=== PATIENT | male | born 1940 | race Hispanic/Latino ===

== ENCOUNTER 2017-11-22 15:20 | Observation (INO) | payer MEDICARE, OTHER ==
[~2017-11-22] VITALS: Ht 165.1 cm; Wt 80.3 kg
[~2017-11-22 15:20] MED LIST: ACIDOPHILUS1 EAC4 PO; AZITHROMYCIN250 MG; BENZONATATE200 MG PO; CIPRO500 MG PO; LOVASTATIN20 MG PO; PREDNISONE10 MG PO; QUETIAPINE FUM100 MG PO; QUETIAPINE FUMA25 MG PO; TAMIFLU75 MG PO
--- OUTSIDE RECORDS SUMMARY | 2017-11-22 15:22 | XMS REPORT ---
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 Allergies, Adverse Reactions, Alerts This patient has no known allergies or adverse reactions. Medications This patient has no known medications. Results Test Description Test Time Test Comments Text Results Atomic Results Result Comments CHEST 2 VIEWS [place] [address] Patient Name: ELIANA MUSTAFA MR #: [id number] : 1940 Age/Sex: 76/M Req # : [id number] Adm Physician: Ordered by: KIM CORTEZ Report #: [id number] Location: ER Room/Bed: Procedure: [id number] DX/CHEST 2 VIEWS Exam Date: 08/18/17 Exam Time : 1929 REPORT STATUS: Signed Two view chest x-ray INDICATION: Abnormal CT, swollen legs COMPARISON: CT chest 08/18/2017, chest x-ray 05/01 FINDINGS: The heart is top normal in size. The aorta is ectatic. The lindsay is stable in morphology. The pulmonary vascular markings are normal. The lungs are hyperinflated. There is bibasilar chronic atelectasis/scar, similar to previous exam. There is no evidence of focal consolidation or pleural effusion. Evaluation of the osseous structures demonstrates diffuse demineralization and degenerative changes of the spine consistent with age. No focal osseous lesions. IMPRESSION: COPD. Stable bibasilar chronic atelectasis/scar. Stable cardiomegaly and aortic ectasia. No acute cardiopulmonary process. Signed by: Dr. Prerna Germain MD on 08/18/2017 8:05 PM Dictated By: PRERNA GERMAIN MD 04 Transcribed By : MUSTAPHA on 08/18/172004 COPY TO: KIM CORTEZ CT CHEST W [place] [address] Patient Name: ELIANA MUSTAFA MR #: [id number] : 1940 Age/Sex: 76/M Req # : [id number] Adm Physician: Ordered by: EVIE RODGERS MD Report #: [id number] Location: CT Room/Bed: Procedure: [id number] CT/CT CHEST W Exam Date: 08/18/17 Exam Time: 1640 REPORT STATUS: Signed PROCEDURE: CT scan of the chest WITH intravenous contrast, using standard protocol. TECHNIQUE: The chest was scanned utilizing a multidetector helical scanner from the lung apex through the level of the adrenal glands after the IV administration of 100 cc of Isovue 370. Coronal and sagittal multiplanar reformations were obtained. COMPARISON: Chest CT 07/21/2015. INDICATIONS: COUGH, CONGESTION FINDINGS: Lines/tubes: None. Lungs and Airways: Stable bilateral lower lobe subsegmental atelectasis and scarring, as well as left lower lobe atelectasis likely secondary to extrinsic narrowing of the left lower lobe subsegmental bronchus by calcified left hilar lymph nodes. No new opacities, masses, or consolidation. Segmental and subsegmental pulmonary emboli in the right and left lower lobes (series 2 image 83 and 64-68). Pleura: The pleural spaces are clear. Heart and mediastinum: Numerous calcified mediastinal and hilar lymph nodes. No significant mediastinal, hilar or axillary lymphadenopathy is seen. The thyroid gland is normal. The heart and pericardium are within normal limits. Mild atherosclerotic calcifications. Left vertebral artery arises directly from the aorta. Soft tissues: Normal. Abdomen: Subcentimeter hepatic cysts. Renal cysts noted within the visualized portions of the left kidney, characterized as simple cysts on MRI 11/11/2015. Bones: Degenerative changes of the spine. IMPRESSION: 1. Bilateral lower lobe segmental and subsegmental pulmonary emboli. No evidence of right heart strain. 2. Stable lower lobe scarring and posteromedial left lower lobe atelectasis likely secondary to extrinsic narrowing of the left lower lobe subsegmental bronchus by calcified hilar lymph nodes. 3. Calcified mediastinal and hilar lymph nodes likely related to prior granulomatous disease. Findings were discussed with the patient by Dr. Power via telephone with the assistance of a mate first on 08/18/2017 at 5:45 pm after unsuccessful attempts at contacting Dr. Rodgers's office. Patient was advised to go to the emergency room as soon as possible. Patient verbalized their understanding and agreed to go to the emergency room. Dictated by: Kyle Power M.D. on 08/18/2017 at 17:51 Electronically approved by: Kyle Power M.D. on 08/18/2017 at 17:51 Dictated By: KYLE POWER MD 50 Transcribed By: ELISEO on 08/18/17 175 COPY TO: EVIE RODGERS MD
[2017-11-22] MEDS ORDERED: AZITHROMYCIN 500MG/NS 250 ML 250 ML IV STA (15:57)
[2017-11-22] MEDS ORDERED: SODIUM CHLORIDE 0.9% 1000ML 1,000 ML IV STA (15:57)
[2017-11-22] MEDS ORDERED: CEFTRIAXONE SOD 1 GM VIAL IV SCH (16:00)
[2017-11-22] MEDS ORDERED: IPRATROPIUM BROMIDE 0.02% 2.5 ML NEB NEB STA (16:02)
[2017-11-22] MEDS ORDERED: ALBUTEROL SULF 0.083% NEB SOLN 3 ML NEB NEB STA (16:02)
--- NOTE | 2017-11-22 16:47 | Diagnostic Imaging Report ---
PROCEDURE: A single AP view of the chest. COMPARISON: Chest radiograph and CT 08/18/2017 INDICATIONS: CONGESTION, COUGH AND SHORTNESS OF BREATHE FINDINGS: Lines/tubes: None. Lungs: The lungs are well inflated. Linear opacities in the lung bases likely representing atelectasis and/or scarring. There is no evidence of pneumonia or pulmonary edema. Pleura: There is no pleural effusion or pneumothorax. Heart and mediastinum: Tortuous aorta. Otherwise, the heart and the mediastinum are unremarkable. Bones: No acute bony abnormality. IMPRESSION: No acute cardiopulmonary disease. Dictated by: Kyle Martinez M.D. on 11/22/2017 at 16:46 Electronically approved by: Kyle Martinez M.D. on 11/22/2017 at 16:46
[2017-11-22 18:17] LABS: BASOPHILS % 0.2 % (0.0-1.0); HEMATOCRIT 44.4 % (38.2-49.6); HEMOGLOBIN 14.4 g/dL (14.0-18.0); LYMPHOCYTES # (AUTO) 0.7 (1.0-3.2); LYMPHOCYTES % 4.6 % (18.0-39.1); MEAN CORPUSCULAR HEMOGLOBIN 28.2 pg (28-32); MEAN CORPUSCULAR HGB CONC 32.4 g/dL (31-35); MEAN CORPUSCULAR VOLUME 87.1 fL (81-99); MONOCYTES # (AUTO) 0.5 (0.2-0.8); MONOCYTES % 3.5 % (4.4-11.3); NEUTROPHILS # (AUTO) 13.4 (2.1-6.9); NEUTROPHILS % 91.2 % (38.7-80.0); PLATELET COUNT 222 x10e3/uL (140-360); RED CELL DISTRIBUTION WIDTH 14.9 % (11.7-14.4)
[2017-11-22 18:36] LABS: ALANINE AMINOTRANSFERASE 26 IU/L (0-55); ALBUMIN 3.7 g/dL (3.5-5.0); ALBUMIN/GLOBULIN RATIO 0.8 (0.8-2.0); ALKALINE PHOSPHATASE 57 IU/L (40-150); ANION GAP 15.1 mmol/L (8-16); BLOOD UREA NITROGEN 15 mg/dL (7-26); BUN/CREATININE RATIO 13 (6-25); CALCIUM 9.4 mg/dL (8.4-10.2); CARBON DIOXIDE 22 mmol/L (22-29); CHLORIDE 105 mmol/L (98-107); CREATININE, SERUM 1.12 mg/dL (0.72-1.25); EST GLOMERULAR FILTRATION RATE > 60 ML/MIN (60-); GLUCOSE 152 mg/dL (74-118); POTASSIUM 4.1 mmol/L (3.5-5.1); SODIUM 138 mmol/L (136-145)
[2017-11-22] MEDS ORDERED: AZITHROMYCIN 500MG/NS 250 ML 250 ML ONE (19:01)
[2017-11-22] MEDS ORDERED: SODIUM CHLORIDE 0.9% 1000ML 1,000 ML ONE (19:02)
[2017-11-22] MEDS ORDERED: AZITHROMYCIN 500MG/SOD CHL 0.9% 250ML BAG IV SCH (19:30)
[2017-11-22] MEDS: IPRATROPIUM BROMIDE 0.02% 2.5 ML NEB NEB SCH (19:30)
[2017-11-22] MEDS: ALBUTEROL SULF 0.083% NEB SOLN 3 ML NEB NEB SCH (19:30)
[2017-11-22] MEDS: SODIUM CHLORIDE 0.9% 1000ML 1,000 ML IV SCH (20:01)
[2017-11-22] MEDS: AZITHROMYCIN 500MG/NS 250 ML 250 ML IV SCH (20:01)
[2017-11-22 20:05] LABS: ABG HCO3 24 mmol/L (23-28); ABG PCO2 36 mmHg (41-51); ABG PH 7.43 (7.31-7.41); ABG PO2 146 mmHg (80-105)
[2017-11-22 22:33] VITALS: BP 145/65
[2017-11-22 22:43] VITALS: BP 135/76
[2017-11-22 22:46] VITALS: BP 135/76
[2017-11-23] VITALS (8 sets, daily range): BP systolic 94–126; BP diastolic 57–65
[2017-11-23] MEDS: ALBUTEROL SULF 0.083% NEB SOLN 3 ML NEB NEB SCH ×6 (00:15→19:20)
[2017-11-23] MEDS: IPRATROPIUM BROMIDE 0.02% 2.5 ML NEB NEB SCH ×4 (00:15→19:20)
[2017-11-23] MEDS: SODIUM CHLORIDE 0.9% 1000ML 1,000 ML IV SCH (03:18)
[2017-11-23] MEDS ORDERED: GUAIFENESIN/CODEINE 10 ML CUP PO PRN (09:30)
[2017-11-23] MEDS: METHYLPREDNISOLONE SOD SUCC 40 MG/ML VIAL IV SCH ×3 (09:58→22:24)
[2017-11-23] MEDS: CEFTRIAXONE SOD 1 GM VIAL IV SCH ×2 (09:58→21:06)
[2017-11-23] MEDS: BENZONATATE 100 MG CAP PO SCH ×3 (09:58→21:06)
--- NOTE | 2017-11-23 12:06 | Diagnostic Imaging Report ---
PROCEDURE: CT CHEST WITHOUT CONTRAST CT scan of the chest WITHOUT intravenous contrast, using standard protocol. TECHNIQUE: The chest was scanned utilizing a multidetector helical scanner from the apex to the level of the adrenal glands. No IV contrast was administered per physician's request. Coronal and sagittal multiplanar reformations were obtained. COMPARISON: [facility], CT, CT CHEST W, 08/18/2017, 16:32. INDICATIONS: SHORTNESS OF BREATH FINDINGS: Lines/tubes: None. Lungs and Airways: No interval change in scarring and associated bronchiectasis and mucus impaction, and volume loss of the left lower lobe (series 3, image 81) with posterior retraction of the major fissure, secondary to extrinsic compression of the left lower lobe bronchus by calcified hilar nodes. Interval development of nodular groundglass opacities extending along the bronchovascular bundle in the lateral aspect of the left upper lobe (for example series 3, images 72-81 and coronal image 77). Stable linear scarring and associated bronchiectasis in the right lower lobe and lingula. No new consolidation or nodules. No new masses. Pleura: No effusion, or pneumothorax. Heart and mediastinum: Thyroid is unremarkable. Heart size is normal. No pericardial effusion. Mild atherosclerotic calcification of the thoracic aortic arch and coronary arteries. Lymph nodes: Extensive calcification of mediastinal, and bilateral hilar nodes, which is unchanged. No new mediastinal, hilar, or axillary adenopathy. Abdomen: Limited views of the upper abdomen show no abnormality within the visualized spleen, pancreas, or right kidney. Stable 1.2 cm simple cyst in the superior pole left kidney (series 2, image 109). Stable subcentimeter hypodense lesions in the liver consistent with small cysts. The adrenal glands are normal. Bones: No aggressive lytic lesions. IMPRESSION: 1. interval development of nodular groundglass opacities extending along the bronchovascular bundle in the lateral aspect of the left upper lobe, likely representing endobronchial spread of infection. No consolidation. 2. No interval change in scarring, associated bronchiectasis and mucus impaction and volume loss in the left lower lobe, as well as linear scarring in the right lower lobe and lingula. Anthony Sanabria M.D. Dictated by: Anthony Sanabria M.D. on 11/23/2017 at 12:06 Electronically approved by: Anthony Sanabria M.D. on 11/23/2017 at 12:06
[2017-11-23] MEDS: ENOXAPARIN SOD INJ 40 MG/0.4 ML SYR SC SCH (17:13)
[2017-11-24] VITALS (8 sets, daily range): BP systolic 99–144; BP diastolic 56–84
[2017-11-24] MEDS: ALBUTEROL SULF 0.083% NEB SOLN 3 ML NEB NEB SCH ×6 (00:24→20:12)
[2017-11-24] MEDS: IPRATROPIUM BROMIDE 0.02% 2.5 ML NEB NEB SCH ×4 (00:24→20:12)
[2017-11-24] MEDS: METHYLPREDNISOLONE SOD SUCC 40 MG/ML VIAL IV SCH ×3 (06:18→22:36)
[2017-11-24 07:37] LABS: BASOPHILS % 0.1 % (0.0-1.0); HEMATOCRIT 35.6 % (38.2-49.6); HEMOGLOBIN 11.9 g/dL (14.0-18.0); LYMPHOCYTES # (AUTO) 0.9 (1.0-3.2); LYMPHOCYTES % 5.6 % (18.0-39.1); MEAN CORPUSCULAR HGB CONC 33.4 g/dL (31-35); MEAN CORPUSCULAR VOLUME 86.6 fL (81-99); MONOCYTES # (AUTO) 0.7 (0.2-0.8); MONOCYTES % 4.4 % (4.4-11.3); NEUTROPHILS # (AUTO) 14.1 (2.1-6.9); NEUTROPHILS % 88.3 % (38.7-80.0); PLATELET COUNT 214 x10e3/uL (140-360); RED BLOOD COUNT 4.11 x10e6/uL (4.3-5.7); RED CELL DISTRIBUTION WIDTH 15.3 % (11.7-14.4)
[2017-11-24 08:03] LABS: ANION GAP 11.5 mmol/L (8-16); BLOOD UREA NITROGEN 22 mg/dL (7-26); BUN/CREATININE RATIO 26 (6-25); CALCIUM 8.3 mg/dL (8.4-10.2); CARBON DIOXIDE 22 mmol/L (22-29); CHLORIDE 112 mmol/L (98-107); CREATININE, SERUM 0.85 mg/dL (0.72-1.25); EST GLOMERULAR FILTRATION RATE > 60 ML/MIN (60-); GLUCOSE 125 mg/dL (74-118); POTASSIUM 4.5 mmol/L (3.5-5.1); SODIUM 141 mmol/L (136-145)
[2017-11-24] MEDS: BENZONATATE 100 MG CAP PO SCH ×3 (09:00→20:35)
[2017-11-24] MEDS: CEFTRIAXONE SOD 1 GM VIAL IV SCH ×2 (09:27→20:35)
[2017-11-24] MEDS: ENOXAPARIN SOD INJ 40 MG/0.4 ML SYR SC SCH (17:00)
[2017-11-24] MEDS ORDERED: SODIUM CHLORIDE 0.9% 250ML 250 ML ONE (17:40)
[2017-11-24] MEDS: AZITHROMYCIN 500MG/NS 250 ML 250 ML IV SCH (18:00)
[2017-11-24] MEDS ORDERED: PANTOPRAZOLE SOD 40 MG TABEC PO ONE (20:15)
[2017-11-25] VITALS (7 sets, daily range): BP systolic 105–157; BP diastolic 68–89
[2017-11-25] MEDS: IPRATROPIUM BROMIDE 0.02% 2.5 ML NEB NEB SCH ×4 (00:10→18:45)
[2017-11-25] MEDS: ALBUTEROL SULF 0.083% NEB SOLN 3 ML NEB NEB SCH ×7 (00:10→22:20)
[2017-11-25] MEDS: METHYLPREDNISOLONE SOD SUCC 40 MG/ML VIAL IV SCH ×3 (06:01→21:03)
[2017-11-25 08:01] LABS: BASOPHILS % 0.1 % (0.0-1.0); HEMATOCRIT 36.6 % (38.2-49.6); HEMOGLOBIN 12.2 g/dL (14.0-18.0); LYMPHOCYTES # (AUTO) 1.1 (1.0-3.2); LYMPHOCYTES % 7.9 % (18.0-39.1); MEAN CORPUSCULAR HEMOGLOBIN 28.2 pg (28-32); MEAN CORPUSCULAR HGB CONC 33.3 g/dL (31-35); MEAN CORPUSCULAR VOLUME 84.7 fL (81-99); MONOCYTES # (AUTO) 0.6 (0.2-0.8); MONOCYTES % 3.9 % (4.4-11.3); NEUTROPHILS # (AUTO) 12.4 (2.1-6.9); NEUTROPHILS % 87.1 % (38.7-80.0); PLATELET COUNT 228 x10e3/uL (140-360); RED BLOOD COUNT 4.32 x10e6/uL (4.3-5.7); RED CELL DISTRIBUTION WIDTH 15.1 % (11.7-14.4)
[2017-11-25 08:42] LABS: ANION GAP 13.2 mmol/L (8-16); BLOOD UREA NITROGEN 22 mg/dL (7-26); BUN/CREATININE RATIO 25 (6-25); CALCIUM 8.3 mg/dL (8.4-10.2); CARBON DIOXIDE 22 mmol/L (22-29); CHLORIDE 111 mmol/L (98-107); CREATININE, SERUM 0.87 mg/dL (0.72-1.25); EST GLOMERULAR FILTRATION RATE > 60 ML/MIN (60-); GLUCOSE 126 mg/dL (74-118); POTASSIUM 4.2 mmol/L (3.5-5.1); SODIUM 142 mmol/L (136-145)
[2017-11-25] MEDS: PANTOPRAZOLE SOD 40 MG TABEC PO SCH (09:15)
[2017-11-25] MEDS: CEFTRIAXONE SOD 1 GM VIAL IV SCH ×2 (09:15→21:03)
[2017-11-25] MEDS: BENZONATATE 100 MG CAP PO SCH ×3 (09:15→21:03)
[2017-11-25] MEDS: ENOXAPARIN SOD INJ 40 MG/0.4 ML SYR SC SCH (17:00)
[2017-11-25] MEDS: AZITHROMYCIN 500MG/NS 250 ML 250 ML IV SCH (18:00)
[2017-11-26] VITALS (7 sets, daily range): BP systolic 109–139; BP diastolic 66–83
[2017-11-26] MEDS: ALBUTEROL SULF 0.083% NEB SOLN 3 ML NEB NEB SCH ×4 (02:05→15:49)
[2017-11-26] MEDS: IPRATROPIUM BROMIDE 0.02% 2.5 ML NEB NEB SCH ×3 (02:05→15:49)
[2017-11-26] MEDS: METHYLPREDNISOLONE SOD SUCC 40 MG/ML VIAL IV SCH (05:32)
[2017-11-26 07:56] LABS: BASOPHILS % 0.3 % (0.0-1.0); HEMATOCRIT 36.2 % (38.2-49.6); HEMOGLOBIN 12.3 g/dL (14.0-18.0); LYMPHOCYTES # (AUTO) 0.9 (1.0-3.2); LYMPHOCYTES % 7.4 % (18.0-39.1); MEAN CORPUSCULAR HEMOGLOBIN 28.6 pg (28-32); MEAN CORPUSCULAR VOLUME 84.2 fL (81-99); MONOCYTES # (AUTO) 0.6 (0.2-0.8); MONOCYTES % 4.6 % (4.4-11.3); NEUTROPHILS # (AUTO) 10.2 (2.1-6.9); PLATELET COUNT 213 x10e3/uL (140-360); RED CELL DISTRIBUTION WIDTH 15.3 % (11.7-14.4)
[2017-11-26 08:25] LABS: ANION GAP 10.1 mmol/L (8-16); BLOOD UREA NITROGEN 21 mg/dL (7-26); BUN/CREATININE RATIO 26 (6-25); CALCIUM 8.1 mg/dL (8.4-10.2); CARBON DIOXIDE 23 mmol/L (22-29); CHLORIDE 109 mmol/L (98-107); CREATININE, SERUM 0.82 mg/dL (0.72-1.25); EST GLOMERULAR FILTRATION RATE > 60 ML/MIN (60-); GLUCOSE 132 mg/dL (74-118); POTASSIUM 4.1 mmol/L (3.5-5.1); SODIUM 138 mmol/L (136-145)
[2017-11-26] MEDS: PANTOPRAZOLE SOD 40 MG TABEC PO SCH (09:00)
[2017-11-26] MEDS: BENZONATATE 100 MG CAP PO SCH ×3 (09:00→20:47)
[2017-11-26] MEDS: CEFTRIAXONE SOD 1 GM VIAL IV SCH ×2 (09:08→20:47)
[2017-11-26 12:14] LABS: BAND NEUTROPHILS % (MANUAL) 1 %; LYMPHOCYTES % (MANUAL) 10 % (19-48); MONOCYTES % (MANUAL) 1 % (3.4-9.0); NEUTROPHILS % (MANUAL) 88 % (40-74)
[2017-11-26 12:17] LABS: PLATELET ESTIMATE ADEQUATE; PLATELET MORPHOLOGY COMMENT NORMAL; RBC MORPHOLOGY COMMENT NORMAL
[2017-11-26] MEDS: ENOXAPARIN SOD INJ 40 MG/0.4 ML SYR SC SCH (17:00)
[2017-11-26] MEDS ORDERED: LORATADINE 10 MG TAB PO SCH (18:30)
[2017-11-26] MEDS ORDERED: ALBUTEROL/IPRATROPIUM 3 ML NEB NEB PRN (18:30)
[2017-11-26] MEDS ORDERED: MONTELUKAST SODIUM 10 MG TAB PO SCH (21:00)
[2017-11-27 01:05] VITALS: BP 138/92
[2017-11-27 04:52] VITALS: BP 115/75
[2017-11-27 07:11] LABS: BASOPHILS # (AUTO) 0.1 (0.0-0.1); BASOPHILS % 0.5 % (0.0-1.0); HEMATOCRIT 36.8 % (38.2-49.6); HEMOGLOBIN 12.4 g/dL (14.0-18.0); LYMPHOCYTES # (AUTO) 1.1 (1.0-3.2); LYMPHOCYTES % 8.4 % (18.0-39.1); MEAN CORPUSCULAR HEMOGLOBIN 28.3 pg (28-32); MEAN CORPUSCULAR HGB CONC 33.7 g/dL (31-35); MONOCYTES # (AUTO) 1.3 (0.2-0.8); MONOCYTES % 9.4 % (4.4-11.3); NEUTROPHILS # (AUTO) 10.6 (2.1-6.9); NEUTROPHILS % 78.2 % (38.7-80.0); PLATELET COUNT 215 x10e3/uL (140-360); RED BLOOD COUNT 4.38 x10e6/uL (4.3-5.7); RED CELL DISTRIBUTION WIDTH 15.2 % (11.7-14.4)
[2017-11-27 08:08] LABS: ANION GAP 12.5 mmol/L (8-16); BLOOD UREA NITROGEN 19 mg/dL (7-26); BUN/CREATININE RATIO 23 (6-25); CALCIUM 8.2 mg/dL (8.4-10.2); CARBON DIOXIDE 23 mmol/L (22-29); CHLORIDE 109 mmol/L (98-107); CREATININE, SERUM 0.81 mg/dL (0.72-1.25); EST GLOMERULAR FILTRATION RATE > 60 ML/MIN (60-); GLUCOSE 92 mg/dL (74-118); POTASSIUM 4.5 mmol/L (3.5-5.1); SODIUM 140 mmol/L (136-145)
[2017-11-27 08:22] VITALS: BP 129/85
[2017-11-27] MEDS ORDERED: PREDNISONE 20 MG TAB PO SCH (09:00)
[2017-11-27] MEDS: BENZONATATE 100 MG CAP PO SCH (09:12)
[2017-11-27] MEDS: PANTOPRAZOLE SOD 40 MG TABEC PO SCH (09:12)
[2017-11-27 09:38] LABS: EOSINOPHILS % (MANUAL) 2 % (0-7); LYMPHOCYTES % (MANUAL) 9 % (19-48); METAMYELOCYTES % (MANUAL) 1 % (0-0); MONOCYTES % (MANUAL) 6 % (3.4-9.0); NEUTROPHILS % (MANUAL) 82 % (40-74)
[2017-11-27 09:39] LABS: PLATELET ESTIMATE ADEQUATE; PLATELET MORPHOLOGY COMMENT NORMAL; POIKILOCYTOSIS SLIGHT; RBC MORPHOLOGY COMMENT NORMAL
[2017-11-27] MEDS: CEFTRIAXONE SOD 1 GM VIAL IV SCH (09:51)
== END 2017-11-27 10:37 | disposition home or self-care (01) ==
LOC: ER 15:20 → EDBEDREQ 19:32 → ERHOLD 20:00 → IMCU 21:57 → MED/SURG3 11-23 22:37
PROVIDERS: ADMIT Internal Medicine; ATTEND Internal Medicine
DX: J18.9 Pneumonia, unspecified organism (principal); R09.02 Hypoxemia; J20.9 Acute bronchitis, unspecified
CPT/HCPCS: 36415 ×5; 36600; 71045; 71250; 80048 ×4; 80053; 82805; 83880; 85025 ×5; 87040; 87400; 93005; 94640 ×9; 99284; G0378 ×6; J0456 ×4; J0696 ×5; J1650 ×4; J2920 ×4; J7030 ×2; J7050

== ENCOUNTER 2017-12-11 10:03 | Inpatient (IN) | payer OTHER ==
[~2017-12-11] VITALS: Ht 165.1 cm; Wt 80.9 kg
[2017-12-11] MEDS ORDERED: ALBUTEROL SULF 0.083% NEB SOLN 3 ML NEB NEB STA (10:41)
[2017-12-11] MEDS ORDERED: IPRATROPIUM BROMIDE 0.02% 2.5 ML NEB NEB STA (10:41)
[2017-12-11] MEDS ORDERED: CEFTRIAXONE SOD 1 GM VIAL IV ONE (10:45)
[2017-12-11] MEDS ORDERED: ACETAMINOPHEN 1000 MG/100 ML IV STA (11:03)
[2017-12-11 11:11] LABS: BASOPHILS % 0.2 % (0.0-1.0); EOSINOPHILS % 0.1 % (0.0-6.0); HEMATOCRIT 39.6 % (38.2-49.6); HEMOGLOBIN 13.4 g/dL (14.0-18.0); LYMPHOCYTES # (AUTO) 0.4 (1.0-3.2); LYMPHOCYTES % 2.6 % (18.0-39.1); MEAN CORPUSCULAR HEMOGLOBIN 28.5 pg (28-32); MEAN CORPUSCULAR HGB CONC 33.8 g/dL (31-35); MEAN CORPUSCULAR VOLUME 84.3 fL (81-99); MONOCYTES # (AUTO) 1.1 (0.2-0.8); MONOCYTES % 6.8 % (4.4-11.3); NEUTROPHILS # (AUTO) 14.9 (2.1-6.9); NEUTROPHILS % 89.6 % (38.7-80.0); PLATELET COUNT 145 x10e3/uL (140-360); RED CELL DISTRIBUTION WIDTH 15.9 % (11.7-14.4)
[2017-12-11 11:29] LABS: ALANINE AMINOTRANSFERASE 27 IU/L (0-55); ALBUMIN 3.3 g/dL (3.5-5.0); ALBUMIN/GLOBULIN RATIO 0.9 (0.8-2.0); ALKALINE PHOSPHATASE 50 IU/L (40-150); ANION GAP 12.7 mmol/L (8-16); BLOOD UREA NITROGEN 15 mg/dL (7-26); BUN/CREATININE RATIO 15 (6-25); CALCIUM 8.8 mg/dL (8.4-10.2); CARBON DIOXIDE 22 mmol/L (22-29); CHLORIDE 99 mmol/L (98-107); CREATINE KINASE 58 IU/L (30-200); CREATININE, SERUM 1.02 mg/dL (0.72-1.25); EST GLOMERULAR FILTRATION RATE > 60 ML/MIN (60-); GLUCOSE 108 mg/dL (74-118); MAGNESIUM 1.7 MG/DL (1.3-2.1); POTASSIUM 3.7 mmol/L (3.5-5.1); SODIUM 130 mmol/L (136-145)
--- NOTE | 2017-12-11 12:00 | Diagnostic Imaging Report ---
PROCEDURE: Frontal and lateral views of the chest. COMPARISON: 11/22/17 INDICATIONS: POSITIVE FOR FLU FINDINGS: Lines/tubes: None. Lungs: The lungs are well inflated. Unchanged right lower lung field linear opacity, likely atelectasis/scaring. There is also left base linear atelectasis. Mild retrocardiac opacification. Pleura: There is no pleural effusion or pneumothorax. Heart and mediastinum: The heart and the mediastinum are normal. Bones: No acute bony abnormality. IMPRESSION: Retrocardiac opacification, representing atelectasis and/or pneumonia. Dictated by: Sudheer Toussaint M.D. on 12/11/2017 at 12:00 Electronically approved by: Sudheer Toussaint M.D. on 12/11/2017 at 12:00
[2017-12-11] MEDS ORDERED: AZITHROMYCIN 500MG/SOD CHL 0.9% 250ML BAG IV SCH (12:30)
[2017-12-11] MEDS: ALBUTEROL/IPRATROPIUM 3 ML NEB NEB SCH ×2 (13:00→19:45)
[2017-12-11] MEDS: CEFTRIAXONE SOD 1 GM VIAL IV SCH (13:18)
[2017-12-11] MEDS: AZITHROMYCIN 500MG/NS 250 ML 250 ML IV SCH (13:48)
[2017-12-11] MEDS: OSELTAMIVIR PHOSPHATE 75 MG CAP PO SCH ×2 (13:53→20:38)
[2017-12-11 14:20] LABS: LYMPHOCYTES % (MANUAL) 2 % (19-48); MONOCYTES % (MANUAL) 5 % (3.4-9.0); NEUTROPHILS % (MANUAL) 93 % (40-74)
[2017-12-11 14:22] LABS: ANISOCYTOSIS SLIGHT; HYPOCHROMASIA SLIG; RBC MORPHOLOGY COMMENT NORMAL
[2017-12-11 14:23] LABS: PLATELET ESTIMATE SLIGHTLY DECREASED
[2017-12-11 14:24] LABS: PLATELET MORPHOLOGY COMMENT NORMAL
[2017-12-11] MEDS ORDERED: DEXTROSE 50% SYRINGE 50 ML IV ONE (15:55)
[2017-12-11] MEDS: GUAIFENESIN 600MG/DEXTROMETHORPHAN 30MG TABSR PO SCH ×2 (17:00→20:38)
[2017-12-11 18:24] VITALS: BP 107/53
[2017-12-11 19:15] VITALS: BP 95/64
[2017-12-11] MEDS ORDERED: LORATADINE10 MG PO (19:32)
[2017-12-11] MEDS ORDERED: MONTELUKAST SOD10 MG PO (19:32)
[2017-12-11 19:46] VITALS: BP 95/64
[2017-12-11 20:00] VITALS: BP 95/64
[2017-12-11] MEDS ORDERED: INFLUENZA VIRUS VAC SPLIT INJ 0.5 ML SYR IM PRN (20:00)
[2017-12-11] MEDS ORDERED: PNEUMOCOCCAL VACCINE POLYVALENT 23 MCG/0.5 ML VIAL IM PRN (20:00)
[2017-12-11] MEDS: GUAIFENESIN/CODEINE 10 ML CUP PO PRN (20:38)
[2017-12-11] MEDS: SIMVASTATIN 20 MG TAB PO SCH (20:38)
[2017-12-11] MEDS: DOCUSATE SODIUM 100 MG CAP PO SCH (20:38)
[2017-12-11] MEDS: QUETIAPINE FUMARATE 100 MG TAB PO SCH (20:38)
[2017-12-11] MEDS ORDERED: NON-FORMULARY MEDICATION (Lovastatin 20 MG) PO SCH (21:00)
[2017-12-12] VITALS: BP 102/62
[2017-12-12] MEDS: ALBUTEROL/IPRATROPIUM 3 ML NEB NEB SCH ×4 (01:15→19:22)
[2017-12-12] MEDS: GUAIFENESIN/CODEINE 10 ML CUP PO PRN ×3 (02:47→22:07)
[2017-12-12 04:00] VITALS: BP 117/61
[2017-12-12] MEDS: ACETAMINOPHEN 325 MG TAB PO PRN ×2 (04:14→15:29)
[2017-12-12 06:06] LABS: BASOPHILS % 0.2 % (0.0-1.0); EOSINOPHILS # (AUTO) 0.1 (0.0-0.4); EOSINOPHILS % 0.4 % (0.0-6.0); HEMATOCRIT 34.3 % (38.2-49.6); HEMOGLOBIN 11.5 g/dL (14.0-18.0); LYMPHOCYTES # (AUTO) 0.3 (1.0-3.2); LYMPHOCYTES % 2.7 % (18.0-39.1); MEAN CORPUSCULAR HEMOGLOBIN 28.3 pg (28-32); MEAN CORPUSCULAR HGB CONC 33.5 g/dL (31-35); MEAN CORPUSCULAR VOLUME 84.3 fL (81-99); MONOCYTES # (AUTO) 0.7 (0.2-0.8); MONOCYTES % 6.5 % (4.4-11.3); NEUTROPHILS % 89.7 % (38.7-80.0); PLATELET COUNT 132 x10e3/uL (140-360); RED BLOOD COUNT 4.07 x10e6/uL (4.3-5.7)
[2017-12-12 06:31] LABS: ANION GAP 12.2 mmol/L (8-16); BLOOD UREA NITROGEN 16 mg/dL (7-26); BUN/CREATININE RATIO 18 (6-25); CALCIUM 8.3 mg/dL (8.4-10.2); CARBON DIOXIDE 23 mmol/L (22-29); CHLORIDE 107 mmol/L (98-107); CREATININE, SERUM 0.88 mg/dL (0.72-1.25); EST GLOMERULAR FILTRATION RATE > 60 ML/MIN (60-); GLUCOSE 115 mg/dL (74-118); POTASSIUM 4.2 mmol/L (3.5-5.1); SODIUM 138 mmol/L (136-145)
[2017-12-12 08:00] VITALS: BP 109/61
[2017-12-12 08:27] LABS: ANISOCYTOSIS SLIGHT; EOSINOPHILS % (MANUAL) 1 % (0-7); LYMPHOCYTES % (MANUAL) 2 % (19-48); MONOCYTES % (MANUAL) 5 % (3.4-9.0); NEUTROPHILS % (MANUAL) 90 % (40-74); PLATELET ESTIMATE SLIGHTLY DECREASED; PLATELET MORPHOLOGY COMMENT NORMAL; RBC MORPHOLOGY COMMENT NORMAL
[2017-12-12] MEDS: DOCUSATE SODIUM 100 MG CAP PO SCH ×2 (08:46→17:00)
[2017-12-12] MEDS: MONTELUKAST SODIUM 10 MG TAB PO SCH (08:46)
[2017-12-12] MEDS: LORATADINE 10 MG TAB PO SCH (08:46)
[2017-12-12] MEDS: OSELTAMIVIR PHOSPHATE 75 MG CAP PO SCH ×2 (08:46→17:00)
[2017-12-12] MEDS: GUAIFENESIN 600MG/DEXTROMETHORPHAN 30MG TABSR PO SCH ×2 (08:46→17:00)
[2017-12-12] MEDS: CEFTRIAXONE SOD 1 GM VIAL IV SCH (12:30)
[2017-12-12 12:32] VITALS: BP 113/76
[2017-12-12] MEDS: AZITHROMYCIN 500MG/NS 250 ML 250 ML IV SCH (13:00)
[2017-12-12 17:21] VITALS: BP 123/75
--- NOTE | 2017-12-12 19:31 | History and Physical ---
PRIMARY CARE PROVIDER: Dr. Gerardo Layne. CHIEF COMPLAINT: Pneumonia, influenza B. HISTORY OF PRESENT ILLNESS: Patient is a 77-year-old male who came in with acute shortness breath. Lungs sounds coarseness with wheezing. The patient has influenza B. Chest X-ray showed possible infiltrate, basilar. The patient is having coarseness on breathing and wheezing but improved now. The patient is otherwise stable. PAST MEDICAL HISTORY: Allergic rhinitis. History of recurrent lung disease. Insomnia. Hyperlipidemia. HOME MEDICATIONS: Claritin, lovastatin, Singular and Seroquel. ALLERGIES: NO KNOWN DRUG ALLERGIES. PAST SURGICAL HISTORY: Right carpal tunnel surgery. SOCIAL HISTORY: Patient does not smoke or use alcohol. No recreational drugs. REVIEW OF SYSTEMS: As mentioned, cough, shortness of breath, wheezing, fever. PHYSICAL EXAMINATION: GENERAL: The patient is not in acute distress. He is awake. VITAL SIGNS: Temperature 101. Blood pressure 123/75, Pulse rate 91. Respirations 22. HEENT: Normocephalic, atraumatic, anicteric. NECK: Supple grossly. PULMONARY: Bilateral coarseness and rhonchi both upper and lower lung [place]. CARDIOVASCULAR: S1 and S2. Regular rate and rhythm. ABDOMEN: Soft and unremarkable. EXTREMITIES: No cyanosis or edema. NEUROLOGIC: No gross focal deficit. LABORATORY: WBC is 11.3. Hemoglobin is 11.5. Hematocrit 34.3, platelets 132,000. Sodium 138, potassium 4.2, chloride 107, bicarb 23, BUN 16, creatinine 0.8. Glucose 150. IMPRESSION: 1. Community-acquired pneumonia. 2. Influenza B. 3. Hypoxia. 4. Abnormal lung exam. PLAN: Antibiotics. Tamiflu. Nebulizer treatment. Check the patient's lab work. Oxygen support. Will monitor patient closely and adjust his medication. Job#: [id number]
[2017-12-12 21:06] VITALS: BP 130/69
[2017-12-12] MEDS: QUETIAPINE FUMARATE 100 MG TAB PO SCH (22:07)
[2017-12-12] MEDS: SIMVASTATIN 20 MG TAB PO SCH (22:07)
--- NOTE | 2017-12-12 23:38 | Diagnostic Imaging Report ---
EXAM: CT Chest WITHOUT contrast 12/12/2017 6:28 PM INDICATION: Abnormal chest x-ray COMPARISON: 12/11/2017 TECHNIQUE: Chest was scanned utilizing a multidetector helical scanner from the lung apex through the level of the adrenal glands without administration of IV contrast. Absence of intravenous contrast decreases sensitivity for detection of lymphadenopathy and vascular pathology. Coronal and sagittal reformations were obtained. Routine protocol was performed. IV CONTRAST: None RADIATION DOSE: Total DLP: 532.33 mGy*cm Estimated effective dose: (DLP x 0.014 x size factor) mSv COMPLICATIONS: None FINDINGS: LINES/ TUBES: None. LUNGS AND AIRWAYS: Evidence of atelectasis and confluent airspace disease involving the superior segment of the left lower lobe and to a lesser extent right lower lobe suspicious for multifocal infection. The airways appear circumferentially thickened associated with peribronchial calcified lymph nodes. PLEURA: The pleural spaces are clear. HEART AND MEDIASTINUM: The thyroid gland is normal. Multiple calcified lymph nodes present in the mediastinum predominantly in the subcarinal, bilateral perihilar region, right lower paratracheal and prevascular space. The heart is normal in size.. There is no pericardial effusion. There are mild atherosclerotic calcifications in the aorta and coronary arteries. UPPER ABDOMEN: Partially visualized left renal collecting system appears distended BONES: There are degenerative changes in the thoracic spine. SOFT TISSUES: Unremarkable. IMPRESSION: 1. Constellation of findings are compatible with early stages of interstitial lung disease with calcified mediastinal lymph nodes suggestive of pneumoconiosis/silicosis. Differential diagnosis may include pulmonary sarcoidosis. 2. Left lower lobe evolving pneumonia. Signed by: Dr. Anoop Machado M.D. on 12/12/2017 11:34 PM
[2017-12-13] VITALS (7 sets, daily range): BP systolic 102–122; BP diastolic 55–79
[2017-12-13] MEDS: ALBUTEROL/IPRATROPIUM 3 ML NEB NEB SCH ×4 (02:00→20:15)
[2017-12-13 06:09] LABS: BASOPHILS % 0.2 % (0.0-1.0); EOSINOPHILS # (AUTO) 0.3 (0.0-0.4); HEMATOCRIT 32.2 % (38.2-49.6); HEMOGLOBIN 10.5 g/dL (14.0-18.0); LYMPHOCYTES # (AUTO) 0.7 (1.0-3.2); LYMPHOCYTES % 13.7 % (18.0-39.1); MEAN CORPUSCULAR HEMOGLOBIN 28.4 pg (28-32); MEAN CORPUSCULAR HGB CONC 32.6 g/dL (31-35); MONOCYTES # (AUTO) 0.7 (0.2-0.8); MONOCYTES % 14.7 % (4.4-11.3); NEUTROPHILS # (AUTO) 3.3 (2.1-6.9); NEUTROPHILS % 65.8 % (38.7-80.0); PLATELET COUNT 135 x10e3/uL (140-360); RED CELL DISTRIBUTION WIDTH 16.1 % (11.7-14.4)
[2017-12-13 06:34] LABS: BLOOD UREA NITROGEN 12 mg/dL (7-26); BUN/CREATININE RATIO 15 (6-25); CALCIUM 8.1 mg/dL (8.4-10.2); CARBON DIOXIDE 26 mmol/L (22-29); CHLORIDE 106 mmol/L (98-107); CREATININE, SERUM 0.82 mg/dL (0.72-1.25); EST GLOMERULAR FILTRATION RATE > 60 ML/MIN (60-); GLUCOSE 98 mg/dL (74-118); SODIUM 138 mmol/L (136-145)
[2017-12-13] MEDS: OSELTAMIVIR PHOSPHATE 75 MG CAP PO SCH ×2 (08:50→16:29)
[2017-12-13] MEDS: DOCUSATE SODIUM 100 MG CAP PO SCH ×2 (08:50→16:29)
[2017-12-13] MEDS: LORATADINE 10 MG TAB PO SCH (08:50)
[2017-12-13] MEDS: GUAIFENESIN 600MG/DEXTROMETHORPHAN 30MG TABSR PO SCH ×2 (08:50→16:29)
[2017-12-13] MEDS: MONTELUKAST SODIUM 10 MG TAB PO SCH (08:50)
[2017-12-13] MEDS ORDERED: ALBUTEROL/IPRATROPIUM 3 ML NEB NEB PRN (09:45)
[2017-12-13] MEDS: METHYLPREDNISOLONE SOD SUCC 125 MG/2ML VIAL IV SCH ×3 (11:04→21:55)
[2017-12-13] MEDS: PIPER-TAZ 3.375 GM 50 ML IV SCH ×4 (11:04→23:30)
[2017-12-13] MEDS: AZITHROMYCIN 500MG/NS 250 ML 250 ML IV SCH ×2 (13:00→22:00)
--- NOTE | 2017-12-13 14:45 | Consultation ---
DATE OF CONSULTATION: December 13, 2017 PULMONARY/CRITICAL CARE CONSULTATION REFERRING PHYSICIAN: Dr. Tobin Whitfield. CHIEF COMPLAINT: Worsening dyspnea and wheezing. HISTORY OF PRESENT ILLNESS: The patient is a 77-year-old man. He has a history of prior granulomatous disease and mediastinal adenopathy. In 2013, he required an endobronchial ultrasound and needle biopsy of some calcified lymph nodes. He was found to have a broncholith at that time secondary to old granulomatous disease. He did not have any malignancy. The patient also had pulmonary emboli in August 2017. This episode of pulmonary emboli occurred after a period of immobilization. He was treated with anticoagulants and subsequently stopped the medications. Repeat CT scan showed no further pulmonary emboli. He now complains of worsening dyspnea and congestion for the past week. He notes a cough and wheezing. He does not complain of fevers or chest pain. He came to the emergency department. He had a flu swab that was positive for influenza. He was started on antibiotics and Tamiflu with little improvement but did receive some Solu-Medrol this morning along with bronchodilators. PAST MEDICAL HISTORY 1. Broncholith. 2. Old granulomatous disease of the lung of unclear etiology. 3. COPD. 4. Insomnia. PAST SURGICAL HISTORY 1. Status post bronchoscopy with endobronchial ultrasound and biopsy in 2013 at [facility]. 2. Status post right carpal tunnel surgery. FAMILY HISTORY: Noncontributory. SOCIAL HISTORY: The patient has never been a smoker. He has never been a drinker. He may have had exposure to tuberculosis as a child, although he is unsure of this. He had some prior industrial exposures. REVIEW OF SYSTEMS: The patient is afebrile. He has no headache or chest pain. He does not complain of sore throat. He has no swollen glands. He has wheezing and cough. He notes dyspnea. He is not having any nausea or vomiting. He does not report any leg edema. He does note some insomnia. PHYSICAL EXAMINATION VITAL SIGNS: The patient is afebrile. HEENT: No facial swelling or erythema. The oropharynx is normal. LYMPHATIC: No submandibular, cervical or supraclavicular adenopathy. CARDIAC: Regular rate and rhythm with normal S1 and S2. There are no murmurs or rubs. LUNGS: Auscultation of the lungs reveals wheezes bilaterally. There is a prolonged expiratory phase bilaterally. ABDOMEN: Soft. Nontender. There is no rebound or guarding. EXTREMITIES: No leg edema or calf tenderness. There is no cyanosis or clubbing. NEUROLOGIC: No focal abnormalities. SKIN: No rashes. IMPRESSION 1. Chronic obstructive pulmonary disease with acute exacerbation. 2. Influenza B. 3. Chronic granulomatous disease of the lungs that is unchanged. 4. History of pulmonary emboli. PLAN 1. The patient should have IV Solu-Medrol at 1 mg per kg twice daily. 2. Aggressive bronchodilators. 3. Continue the Zithromax and Tamiflu. 4. The patient needs a CT scan with contrast and PE protocol to rule out recurrent pulmonary emboli. 5. Venous duplex to evaluate for thromboembolic disease. Job#: [id number]
[2017-12-13] MEDS ORDERED: SODIUM CHLORIDE 0.9% 50ML 50 ML ONE (15:05)
[2017-12-13] MEDS ORDERED: IOPAMIDOL 370 MG/ML 200 ML INFUS..BTL INJ ONE (15:05)
--- NOTE | 2017-12-13 15:33 | Diagnostic Imaging Report ---
EXAM: CT Chest WITH contrast 12/13/2017 1:26 PM INDICATION: Acute dyspnea. Rule out pulmonary emboli. COMPARISON: 12/12/2017 and 11/23/2017. TECHNIQUE: Chest was scanned utilizing a multidetector helical scanner from the lung apex through the level of the adrenal glands without administration of IV contrast. Coronal and sagittal reformations were obtained. Routine protocol was performed. IV CONTRAST: 100 mL of Isovue-370 RADIATION DOSE: Total DLP: 555.79 mGy*cm Estimated effective dose: (DLP x 0.014 x size factor) mSv COMPLICATIONS: None FINDINGS: LINES/ TUBES: None. LUNGS AND AIRWAYS: Tiny filling defects in a left lower lobe pulmonary vein on axial images 62 and 63 series 2. There are no filling defects within the pulmonary arteries to the segmental level bilaterally to suggest significant pulmonary embolism as per clinical criteria. Redemonstration of patchy consolidation in the posterior left lower lobe. With demonstration of bilateral irregular pleural parenchymal opacities particularly in the dependent lung bases suggestive of atelectasis and scarring. PLEURA: Trace left pleural effusion. HEART AND MEDIASTINUM: Redemonstration of bilateral calcified hilar and mediastinal lymph nodes. The heart is not enlarged. Mild multivessel coronary artery calcifications. UPPER ABDOMEN: Limited non-contrast views of the upper abdomen show a 1.0 cm cyst exophytic of the upper pole of the left kidney. The adrenal glands are unremarkable. Bilateral small slight bilateral small left sided parapelvic cysts are also noted. BONES: Thoracic DISH. No acute osseous abnormality. SOFT TISSUES: Unremarkable. IMPRESSION: 1. No evidence of pulmonary embolism as per clinical query. 2. No significant change in left lower lobe airspace disease consistent with pneumonia. Recommend follow-up after treatment to document resolution. 3. Bilateral lower lobe pleural parenchymal opacities suggestive of atelectasis and scarring. Signed by: Dr. Angel Pisano M.D. on 12/13/2017 3:30 PM
[2017-12-13] MEDS: SIMVASTATIN 20 MG TAB PO SCH (21:54)
[2017-12-13] MEDS: GUAIFENESIN/CODEINE 10 ML CUP PO PRN (21:54)
[2017-12-13] MEDS: QUETIAPINE FUMARATE 100 MG TAB PO SCH (21:54)
[2017-12-14] VITALS: BP 124/79
[2017-12-14] MEDS: ALBUTEROL/IPRATROPIUM 3 ML NEB NEB SCH ×4 (01:00→20:00)
[2017-12-14 04:00] VITALS: BP 107/73
[2017-12-14 06:13] LABS: BASOPHILS % 0.2 % (0.0-1.0); HEMATOCRIT 34.6 % (38.2-49.6); HEMOGLOBIN 11.4 g/dL (14.0-18.0); LYMPHOCYTES # (AUTO) 0.4 (1.0-3.2); LYMPHOCYTES % 8.4 % (18.0-39.1); MEAN CORPUSCULAR HEMOGLOBIN 27.7 pg (28-32); MEAN CORPUSCULAR HGB CONC 32.9 g/dL (31-35); MEAN CORPUSCULAR VOLUME 84.2 fL (81-99); MONOCYTES # (AUTO) 0.1 (0.2-0.8); MONOCYTES % 1.6 % (4.4-11.3); NEUTROPHILS # (AUTO) 4.6 (2.1-6.9); NEUTROPHILS % 89.6 % (38.7-80.0); PLATELET COUNT 167 x10e3/uL (140-360); RED BLOOD COUNT 4.11 x10e6/uL (4.3-5.7); RED CELL DISTRIBUTION WIDTH 15.8 % (11.7-14.4)
[2017-12-14] MEDS: PIPER-TAZ 3.375 GM 50 ML IV SCH ×2 (06:15→14:43)
[2017-12-14] MEDS: METHYLPREDNISOLONE SOD SUCC 125 MG/2ML VIAL IV SCH ×3 (06:15→22:00)
[2017-12-14 06:50] LABS: ALANINE AMINOTRANSFERASE 24 IU/L (0-55); ALBUMIN 2.6 g/dL (3.5-5.0); ALBUMIN/GLOBULIN RATIO 0.7 (0.8-2.0); ALKALINE PHOSPHATASE 48 IU/L (40-150); ANION GAP 11.5 mmol/L (8-16); BLOOD UREA NITROGEN 15 mg/dL (7-26); BUN/CREATININE RATIO 18 (6-25); CALCIUM 8.8 mg/dL (8.4-10.2); CARBON DIOXIDE 25 mmol/L (22-29); CHLORIDE 107 mmol/L (98-107); CREATININE, SERUM 0.84 mg/dL (0.72-1.25); EST GLOMERULAR FILTRATION RATE > 60 ML/MIN (60-); GLUCOSE 157 mg/dL (74-118); POTASSIUM 4.5 mmol/L (3.5-5.1); SODIUM 139 mmol/L (136-145)
[2017-12-14 08:00] VITALS: BP 111/75
[2017-12-14 08:15] LABS: LYMPHOCYTES % (MANUAL) 4 % (19-48); MONOCYTES % (MANUAL) 3 % (3.4-9.0); NEUTROPHILS % (MANUAL) 88 % (40-74)
[2017-12-14 08:16] LABS: ANISOCYTOSIS SLIGHT; PLATELET ESTIMATE ADEQUATE; PLATELET MORPHOLOGY COMMENT FEW LARGE; RBC MORPHOLOGY COMMENT NORMAL
[2017-12-14] MEDS: LORATADINE 10 MG TAB PO SCH (08:28)
[2017-12-14] MEDS: DOCUSATE SODIUM 100 MG CAP PO SCH ×2 (08:28→16:49)
[2017-12-14] MEDS: GUAIFENESIN 600MG/DEXTROMETHORPHAN 30MG TABSR PO SCH ×2 (08:28→16:49)
[2017-12-14] MEDS: OSELTAMIVIR PHOSPHATE 75 MG CAP PO SCH ×2 (08:28→16:49)
[2017-12-14] MEDS: MONTELUKAST SODIUM 10 MG TAB PO SCH (08:28)
[2017-12-14 09:57] VITALS: BP 111/75
[2017-12-14 12:00] VITALS: BP 105/80
[2017-12-14 16:00] VITALS: BP 107/64
[2017-12-14] MEDS: GUAIFENESIN/CODEINE 10 ML CUP PO PRN (20:30)
[2017-12-14] MEDS: QUETIAPINE FUMARATE 100 MG TAB PO SCH (20:40)
[2017-12-14] MEDS: SIMVASTATIN 20 MG TAB PO SCH (20:40)
[2017-12-14] MEDS: AZITHROMYCIN 500MG/NS 250 ML 250 ML IV SCH (22:00)
[2017-12-15] MEDS: ALBUTEROL/IPRATROPIUM 3 ML NEB NEB SCH ×4 (01:00→20:40)
[2017-12-15] MEDS ORDERED: SODIUM CHLORIDE 0.9% 250ML 250 ML ONE (05:29)
[2017-12-15] MEDS: METHYLPREDNISOLONE SOD SUCC 125 MG/2ML VIAL IV SCH ×3 (05:32→21:45)
[2017-12-15] MEDS: PIPER-TAZ 3.375 GM 50 ML IV SCH ×3 (05:32→22:00)
[2017-12-15 08:00] VITALS: BP 123/58
[2017-12-15] MEDS: LORATADINE 10 MG TAB PO SCH (09:07)
[2017-12-15] MEDS: DOCUSATE SODIUM 100 MG CAP PO SCH ×2 (09:08→17:25)
[2017-12-15] MEDS: OSELTAMIVIR PHOSPHATE 75 MG CAP PO SCH ×2 (09:08→17:25)
[2017-12-15] MEDS: GUAIFENESIN 600MG/DEXTROMETHORPHAN 30MG TABSR PO SCH ×2 (09:08→17:25)
[2017-12-15] MEDS: MONTELUKAST SODIUM 10 MG TAB PO SCH (09:08)
[2017-12-15] MEDS: GUAIFENESIN/CODEINE 10 ML CUP PO PRN (11:20)
[2017-12-15 11:56] VITALS: BP 123/58
[2017-12-15 12:01] VITALS: BP 123/63
[2017-12-15 16:00] VITALS: BP 115/62
[2017-12-15] MEDS: QUETIAPINE FUMARATE 100 MG TAB PO SCH (20:10)
[2017-12-15] MEDS: SIMVASTATIN 20 MG TAB PO SCH (20:10)
[2017-12-15] MEDS: AZITHROMYCIN 500MG/NS 250 ML 250 ML IV SCH (21:00)
[2017-12-15 21:15] VITALS: BP 135/80
[2017-12-15 21:49] VITALS: BP 135/80
[2017-12-16] VITALS (8 sets, daily range): BP systolic 116–153; BP diastolic 68–92
[2017-12-16] MEDS: ALBUTEROL/IPRATROPIUM 3 ML NEB NEB SCH ×4 (00:35→19:20)
[2017-12-16] MEDS: PIPER-TAZ 3.375 GM 50 ML IV SCH (05:19)
[2017-12-16] MEDS: METHYLPREDNISOLONE SOD SUCC 125 MG/2ML VIAL IV SCH (05:19)
[2017-12-16] MEDS ORDERED: PROMETHAZINE/CODEINE 5 ML UDC PO PRN (08:30)
[2017-12-16] MEDS ORDERED: METHYLPREDNISOLONE SOD SUCC 40 MG/ML VIAL IV SCH ×2 (09:00)
[2017-12-16] MEDS: LORATADINE 10 MG TAB PO SCH (09:13)
[2017-12-16] MEDS: DOCUSATE SODIUM 100 MG CAP PO SCH ×2 (09:13→17:25)
[2017-12-16] MEDS: GUAIFENESIN 600MG/DEXTROMETHORPHAN 30MG TABSR PO SCH ×2 (09:13→17:25)
[2017-12-16] MEDS: MONTELUKAST SODIUM 10 MG TAB PO SCH (09:13)
[2017-12-16] MEDS: OSELTAMIVIR PHOSPHATE 75 MG CAP PO SCH ×2 (09:13→17:25)
[2017-12-16] MEDS ORDERED: TRIAMCINOLONE ACET 40 MG/ML VIAL IM ONE ×2 (14:00→15:00)
[2017-12-16] MEDS: LEVOFLOXACIN 500 MG TAB PO SCH (14:37)
[2017-12-16] MEDS: PANTOPRAZOLE SOD 40 MG TABEC PO SCH (14:37)
[2017-12-16] MEDS: PREDNISONE 20 MG TAB PO SCH (14:37)
[2017-12-16] MEDS: GUAIFENESIN/CODEINE 10 ML CUP PO PRN (16:09)
[2017-12-16] MEDS: SIMVASTATIN 20 MG TAB PO SCH (20:42)
[2017-12-16] MEDS: QUETIAPINE FUMARATE 100 MG TAB PO SCH (22:24)
[2017-12-17 00:27] VITALS: BP 147/82
[2017-12-17 00:57] VITALS: BP 130/81
[2017-12-17] MEDS: ALBUTEROL/IPRATROPIUM 3 ML NEB NEB SCH ×3 (01:00→14:10)
[2017-12-17 06:31] VITALS: BP 118/76
[2017-12-17 07:26] VITALS: BP 116/78
[2017-12-17] MEDS: PANTOPRAZOLE SOD 40 MG TABEC PO SCH (07:57)
[2017-12-17] MEDS: DOCUSATE SODIUM 100 MG CAP PO SCH (09:24)
[2017-12-17] MEDS: PREDNISONE 20 MG TAB PO SCH (09:24)
[2017-12-17] MEDS: GUAIFENESIN 600MG/DEXTROMETHORPHAN 30MG TABSR PO SCH (09:24)
[2017-12-17] MEDS: MONTELUKAST SODIUM 10 MG TAB PO SCH (09:24)
[2017-12-17] MEDS: OSELTAMIVIR PHOSPHATE 75 MG CAP PO SCH (09:24)
[2017-12-17] MEDS: LORATADINE 10 MG TAB PO SCH (09:24)
[2017-12-17 11:30] VITALS: BP 152/84
[2017-12-17] MEDS: LEVOFLOXACIN 500 MG TAB PO SCH (14:08)
[2017-12-17 15:51] VITALS: BP 141/92
--- NOTE | 2017-12-17 17:46 | Discharge Summary ---
PRIMARY CARE PHYSICIAN: Dr. Gerardo Layne. CONSULTING PHYSICIAN: Dr. Red Stout, lockstitch binder. FINAL DIAGNOSES 1. Influenza B. 2. Community-acquired pneumonia. 3. History of chronic obstructive pulmonary disease with acute exacerbation. SUMMARY: Patient is 77-year-old male who came in with acute exacerbation of COPD, influenza B, and postobstructive pneumonia. Patient is stable and doing much better now. He was on high-dose steroids and antibiotics. Patient's breathing has significantly improved. He still has some residual cough but overall much better. The patient will go home today with the following medications. 1. Resume home medications and nebulizer treatment. 2. Augmentin 875 mg b.i.d. for 10 days. 3. Symbicort 160/4.5 one puff b.i.d. 4. ProAir HFA 2 puffs q.4 p.r.n. 5. Prednisone tapering dose. Patient is stable for discharge home today. Follow up with Dr. Red Stout and PCP in approximately 1 to 2 weeks. Job#: [id number] TERRANCE
== END 2017-12-17 16:06 | disposition home or self-care (01) | DRG 190 ==
LOC: ER 10:03 → ERHOLD 12:37 → MED/SURG2 17:35
PROVIDERS: ADMIT Internal Medicine; ATTEND Internal Medicine
DX: J44.1 Chronic obstructive pulmonary disease with (acute) exacerbation (principal); J11.08 Influenza due to unidentified influenza virus with specified pneumonia; J18.8 Other pneumonia, unspecified organism; J84.10 Pulmonary fibrosis, unspecified; J21.9 Acute bronchiolitis, unspecified; J11.1 Influenza due to unidentified influenza virus with other respiratory manifestations; J44.0 Chronic obstructive pulmonary disease with (acute) lower respiratory infection; Z86.711 Personal history of pulmonary embolism; Z79.01 Long term (current) use of anticoagulants; G47.00 Insomnia, unspecified; R09.02 Hypoxemia
CPT/HCPCS: 36415; 71046; 71250; 71260; 80048; 80053; 82550; 82553; 83605; 83735; 84484; 85025; 87040; 87400; 90732; 93005; 93970; 94640; 99284; J0456; J0696; J2543; J2920; J2930; J3301; J7050; J7799; Q9967

== ENCOUNTER 2019-02-05 10:27 | Observation (INO) | payer OTHER ==
[~2019-02-05] VITALS: Ht 165.1 cm; Wt 85.5 kg
[~2019-02-05 10:27] MED LIST changes: +LORATADINE10 MG PO; +MONTELUKAST SOD10 MG PO
[2019-02-05] MEDS ORDERED: ASPIRIN 81 MG CHEW TAB PO ONE (11:00)
--- NOTE | 2019-02-05 11:00 | NUR ---
rec'd pt in rm 4 with c/o chest pain. placed on the monitor and in a gown. bed low/locked and call guzmán in hand, hospital bed already in room. updated on pending admit/poc. able to make needs known and has been encouraged to call for any/all needs. spouse at side
[2019-02-05 11:33] LABS: BASOPHILS # (AUTO) 0.1 (0.0-0.1); BASOPHILS % 0.8 % (0.0-1.0); EOSINOPHILS # (AUTO) 0.2 (0.0-0.4); EOSINOPHILS % 3.7 % (0.0-6.0); HEMATOCRIT 43.3 % (38.2-49.6); LYMPHOCYTES # (AUTO) 1.6 (1.0-3.2); MEAN CORPUSCULAR HEMOGLOBIN 27.8 pg (28-32); MEAN CORPUSCULAR HGB CONC 32.3 g/dL (31-35); MEAN CORPUSCULAR VOLUME 86.1 fL (81-99); MONOCYTES # (AUTO) 0.6 (0.2-0.8); MONOCYTES % 10.7 % (4.4-11.3); NEUTROPHILS # (AUTO) 3.5 (2.1-6.9); NEUTROPHILS % 58.3 % (38.7-80.0); PLATELET COUNT 231 x10e3/uL (140-360); RED BLOOD COUNT 5.03 x10e6/uL (4.3-5.7); RED CELL DISTRIBUTION WIDTH 16.7 % (11.7-14.4)
[2019-02-05 11:43] LABS: CLARITY,URINE CLEAR (CLEAR); COLOR,URINE YELLOW (YELLOW)
[2019-02-05 11:44] LABS: BILIRUBIN,URINE NEGATIVE (NEGATIVE); KETONES,URINE NEGATIVE (NEGATIVE); LEUKOCYTE ESTERASE ,URINE NEGATIVE (NEGATIVE); NITRITE,URINE NEGATIVE (NEGATIVE); PROTEIN,URINE DIPSTICK NEGATIVE (NEGATIVE); URINE UROBILINOGEN 0.2 mg/dL (0.2 - 1)
[2019-02-05 11:47] LABS: INR 0.85; PARTIAL THROMBOPLASTIN TIME 29.2 seconds (23.8-35.5); PROTHROMBIN TIME 12.1 seconds (11.9-14.5)
--- NOTE | 2019-02-05 11:49 | Diagnostic Imaging Report ---
EXAMINATION: CHEST SINGLE (NOT PORTABLE) INDICATION: Chest pain. COMPARISON: CT chest 12/13/2017. FINDINGS: TUBES and LINES: None. LUNGS: Lungs are well inflated. There is linear subsegmental atelectasis in the left lower lung. Mild patchy opacity at the left lung base. PLEURA: No pleural effusion or pneumothorax. HEART AND MEDIASTINUM: The cardiomediastinal silhouette is unremarkable. There are atherosclerotic calcifications within the aorta. BONES AND SOFT TISSUES: No acute osseous abnormality. UPPER ABDOMEN: No free air under the diaphragm. IMPRESSION: Mild patchy opacity at the left lung base may represent atelectasis or early pneumonia in the appropriate clinical setting. Note is made from prior CT chest from 12/13/2017 which demonstrated atelectasis/scarring as well as pneumonia in the left lower lobe. Suggest follow-up chest radiograph in 6-8 weeks. Signed by: Dr. Radha Keen MD on 02/05/2019 11:46 AM
[2019-02-05 11:55] LABS: ALANINE AMINOTRANSFERASE 36 IU/L (0-55); ALBUMIN 3.7 g/dL (3.5-5.0); ALBUMIN/GLOBULIN RATIO 1.1 (0.8-2.0); ALKALINE PHOSPHATASE 54 IU/L (40-150); ANION GAP 14.3 mmol/L (8-16); BLOOD UREA NITROGEN 17 mg/dL (7-26); BUN/CREATININE RATIO 17 (6-25); CALCIUM 9.6 mg/dL (8.4-10.2); CARBON DIOXIDE 25 mmol/L (22-29); CHLORIDE 104 mmol/L (98-107); CREATINE KINASE 61 IU/L (30-200); CREATININE, SERUM 1.03 mg/dL (0.72-1.25); EST GLOMERULAR FILTRATION RATE > 60 ML/MIN (60-); GLUCOSE 93 mg/dL (74-118); MAGNESIUM 2.2 MG/DL (1.3-2.1); POTASSIUM 4.3 mmol/L (3.5-5.1); SODIUM 139 mmol/L (136-145)
[2019-02-05] MEDS ORDERED: ONDANSETRON HCL INJ 2MG/ML 2ML 2 MG/ML VIAL IV PRN (12:30)
[2019-02-05] MEDS ORDERED: MORPHINE SULFATE 2 MG/ML SYR 1ML IV PRN (12:30)
[2019-02-05] MEDS ORDERED: MORPHINE SULFATE INJ 4 MG/ML INJ 1ML IV PRN (12:45)
--- NOTE | 2019-02-05 16:23 | NUR ---
off unit to [facility]
--- NOTE | 2019-02-05 16:56 | NUR ---
back from [facility] and resting with no s/s of distress. denies chest pain
--- NOTE | 2019-02-05 17:20 | Consultation ---
DATE OF CONSULTATION: 02/05/2019 Cardiology Consultation CONSULTING PHYSICIAN: Martinez Talbot MD, Interventional Cardiology. REASON FOR CONSULTATION: Chest pain. HISTORY OF PRESENT ILLNESS: Mr. Abdullahi is a 78-year-old man with a history of dyslipidemia and gastroesophageal reflux disease, who presents to [facility] with complaints of chest discomfort, new onset, occurred at rest while lying down sleeping, woke him up from sleep, lasted at least 5 minutes and then decreased in severity to mild severity and now resolved. Episode was radiating to the back, associated with mild shortness of breath and no other complaints. He has no prior episodes or recurrent episodes. It was not related to position changes, inspiration or cough, meals or exertion. REVIEW OF SYSTEMS: A 12-system review is negative except for as noted above. PAST MEDICAL HISTORY: Dyslipidemia and gastroesophageal reflux disease. SOCIAL HISTORY: No smoking, alcohol, or drugs. FAMILY HISTORY: Denies prior history of CAD. PHYSICAL EXAMINATION: VITAL SIGNS: Temperature 98.5, heart rate 60, respiratory rate 16, blood pressure 134/88, O2 saturation 100% on room air. GENERAL: In no acute distress, alert. NECK: No JVD. CHEST: Clear to auscultation. CARDIOVASCULAR: Regular rate and rhythm. Normal S1 and S2. No S3 or S4. No murmurs or rubs. ABDOMEN: Soft, nontender, nondistended. EXTREMITIES: Trace edema. STUDIES: Reviewed. EKG normal sinus rhythm with nonspecific repolarization abnormalities. Chest x-ray with left lung base opacity which may represent early pneumonia or atelectasis. White blood cells 5.9, hemoglobin 14, platelets 231. INR 0.85. Creatinine 1.03. BNP 14. Troponin I less than 0.001. Calcium 9.6, magnesium 2.2. AST 25, ALT 36, albumin 3.7, total protein 7.1, alkaline phosphatase 54. ASSESSMENT: 1. Chest pain, atypical. 2. Dyslipidemia. 3. Reflux. RECOMMENDATIONS: 1. Serial cardiac enzymes, first set has been negative, continue to trend. 2. The patient had a recent pneumonia, now recovering. Monitor for worsening symptoms, particularly the left lung base infiltrate might represent recurrent developing pneumonia versus atelectasis. Use incentive spirometer and reassess with x-ray advised. 3. Schedule for a stress test if negative enzymes. 4. Obtain echocardiogram. 5. Initiate beta-ana for now for mild hypertension. 6. Continue statin. 7. Aspirin. I thank Dr. Whitfield for the opportunity to participate in the care of this pleasant gentleman. MD MorganV/MODL /[id number] MTDJessy
[2019-02-05] MEDS: METOPROLOL SUCCINATE 25 MG TAB XL PO SCH (17:34)
--- NOTE | 2019-02-05 17:34 | NUR ---
pt refused metoprolol. pt stated, " i don't want to take it right now." bp 141/90, hr 59.
--- NOTE | 2019-02-05 17:55 | NUR ---
pt/family informed of bed assignment for this patient to go to rm 180
--- NOTE | 2019-02-05 19:14 | NUR ---
ATTEMPTED TO CALL REPORT TO TAYLER ANDREWS FOR THIS PATIENT TO GO TO RM180.
[2019-02-05 19:52] LABS: CREATINE KINASE 49 IU/L (30-200)
[2019-02-05 20:31] VITALS: BP 141/90
[2019-02-05 20:49] VITALS: BP 138/85
[2019-02-05] MEDS ORDERED: NON-FORMULARY MEDICATION (Lovastatin 20 MG) PO SCH (21:00)
[2019-02-05] MEDS ORDERED: SIMVASTATIN 20 MG TAB PO SCH (21:00)
[2019-02-06 00:52] VITALS: BP 133/70
[2019-02-06 05:41] LABS: BASOPHILS # (AUTO) 0.1 (0.0-0.1); BASOPHILS % 0.7 % (0.0-1.0); EOSINOPHILS # (AUTO) 0.3 (0.0-0.4); EOSINOPHILS % 3.9 % (0.0-6.0); HEMATOCRIT 41.6 % (38.2-49.6); HEMOGLOBIN 13.8 g/dL (14.0-18.0); LYMPHOCYTES # (AUTO) 1.5 (1.0-3.2); LYMPHOCYTES % 19.5 % (18.0-39.1); MEAN CORPUSCULAR HEMOGLOBIN 27.9 pg (28-32); MEAN CORPUSCULAR HGB CONC 33.2 g/dL (31-35); MONOCYTES # (AUTO) 0.9 (0.2-0.8); MONOCYTES % 11.4 % (4.4-11.3); NEUTROPHILS # (AUTO) 4.8 (2.1-6.9); NEUTROPHILS % 64.2 % (38.7-80.0); PLATELET COUNT 238 x10e3/uL (140-360); RED BLOOD COUNT 4.95 x10e6/uL (4.3-5.7); RED CELL DISTRIBUTION WIDTH 16.5 % (11.7-14.4)
[2019-02-06 06:11] LABS: CREATINE KINASE 49 IU/L (30-200)
[2019-02-06 06:17] VITALS: BP 125/75
[2019-02-06 06:44] LABS: ALANINE AMINOTRANSFERASE 34 IU/L (0-55); ALBUMIN 3.4 g/dL (3.5-5.0); ALBUMIN/GLOBULIN RATIO 1.1 (0.8-2.0); ALKALINE PHOSPHATASE 52 IU/L (40-150); ANION GAP 11.1 mmol/L (8-16); BLOOD UREA NITROGEN 17 mg/dL (7-26); BUN/CREATININE RATIO 17 (6-25); CALCIUM 9.4 mg/dL (8.4-10.2); CARBON DIOXIDE 27 mmol/L (22-29); CHLORIDE 102 mmol/L (98-107); CHOL/HDL RATIO 2.9 (3.9-4.7); CHOLESTEROL 194 MD/DL (0-199); CREATININE, SERUM 0.99 mg/dL (0.72-1.25); EST GLOMERULAR FILTRATION RATE > 60 ML/MIN (60-); GLUCOSE 92 mg/dL (74-118); HDL CHOLESTEROL 66 MG/DL (40-60); LDL CHOLESTEROL 102 MG/DL (60-130); POTASSIUM 4.1 mmol/L (3.5-5.1); SODIUM 136 mmol/L (136-145); TRIGLYCERIDES 129 MG/DL (0-149)
[2019-02-06 08:11] VITALS: BP 123/70
[2019-02-06] MEDS ORDERED: ASPIRIN 81 MG ENTERIC COATED PO SCH (09:00)
[2019-02-06] MEDS ORDERED: REGADENOSON 0.4 MG/5 ML SYR IV ONE (09:22)
[2019-02-06] MEDS ORDERED: MONTELUKAST SODIUM 10 MG TAB PO SCH (10:00)
[2019-02-06] MEDS ORDERED: LORATADINE 10 MG TAB PO SCH (10:00)
[2019-02-06] MEDS: METOPROLOL SUCCINATE 25 MG TAB XL PO SCH (13:04)
[2019-02-06 14:28] VITALS: BP 123/70
--- NOTE | 2019-02-06 15:09 | Progress Note ---
DATE: 02/06/2019 Cardiology Progress Note SUBJECTIVE: Denies recurrent chest pain or shortness of breath. Stress test is ongoing today. Studies to provide, awaiting processing report to follow. OBJECTIVE: VITAL SIGNS: Temperature 97.6, heart rate 66, blood pressure 123/70, respiratory rate 18, and O2 saturation 95% on room air. BMI 31. GENERAL: In no acute distress. Alert. NECK: No JVD. CHEST: Clear to auscultation. CARDIOVASCULAR: Regular rate and rhythm. Normal S1, S2. No S3 or S4. ABDOMEN: Soft, nontender. EXTREMITIES: Trace edema. CARDIOVASCULAR MEDICATIONS: Reviewed. Simvastatin at bedtime and metoprolol 25 mg daily. STUDIES: Reviewed. Creatinine 0.9. Hemoglobin 13.8, platelets 238, and white blood cell 7.4. INR 0.8. ASSESSMENT: 1. Chest pain, undergoing evaluation. 2. Hypertension. 3. Dyslipidemia. RECOMMENDATIONS: 1. Continue current cardiovascular medications. 2. Echo reviewed, preserved left ventricular systolic function. No significant valvular abnormalities. 3. Plan for review of stress test once image is available. Further recommendations to follow. If negative reassuring study, okay to discharge from a cardiovascular standpoint with outpatient followup in 2 weeks. MD RADHA Li/HANSAL /[id number]
[2019-02-06 15:38] VITALS: BP 130/78
--- NOTE | 2019-02-06 19:52 | NUR ---
Received a call from Dr Luna to clear patient from cardiology standpoint.
[2019-02-06] MEDS ORDERED: CHERATUSSIN AC118 ML (20:20)
[2019-02-06] MEDS ORDERED: CHERATUSSIN AC118 ML PO (20:21)
[2019-02-06] MEDS ORDERED: AZITHROMYCIN250 MG PO (20:23)
[2019-02-06] MEDS ORDERED: QUETIAPINE FUMARATE 100 MG TAB PO SCH (21:00)
--- NOTE | 2019-02-07 14:00 | Myoview Stress Test ---
DATE OF STUDY: 02/05/2019 15:27:00 Stress Test - Treadmill ONLY PROCEDURE INDICATION: Chest pain. INTERPRETING AND SUPERVISING PHYSICIAN: Martinez Talbot MD. INTERPRETATION: At rest, heart rate 64, blood pressure 143/81. Resting EKG, normal sinus rhythm, normal EKG. After Lexiscan was administered, heart rate del to 87 beats per minute. Blood pressure decreased to 128/72. There were no significant ST changes or arrhythmias throughout stress or recovery. Myocardial perfusion reveals normal rest and stress perfusion. Gated images demonstrate preserved left ventricular systolic function, normal regional wall motion, and left ventricular ejection fraction of 62%. CONCLUSION: 1. Normal hemodynamic response to Lexiscan stress. 2. Normal electrocardiographic response to Lexiscan stress. 3. Normal myocardial perfusion at rest and stress. 4. Preserved left ventricular systolic function, Normal regional wall motion and left ventricular ejection fraction of 62%. Martinez Talbot MD AFV/MODL /[id number]
== END 2019-02-06 20:50 | disposition home or self-care (01) ==
LOC: ER 10:27 → ERHOLD 12:36 → IMCU 20:13
PROVIDERS: ADMIT Internal Medicine; ATTEND Internal Medicine
DX: R07.89 Other chest pain (principal); K21.9 Gastro-esophageal reflux disease without esophagitis; E78.5 Hyperlipidemia, unspecified; I10 Essential (primary) hypertension; R05 Cough; J01.90 Acute sinusitis, unspecified
CPT/HCPCS: 36415 ×2; 71045; 78452; 80053 ×2; 80061; 81001; 82550 ×2; 82553 ×2; 83735; 83880; 84484 ×2; 85025 ×2; 85610; 85730; 93005; 93017; 93306; 99284; A9502; G0378 ×2; J2785

== ENCOUNTER → 2020-08-04 | Outpatient (CLI) | payer MEDICARE ==
[~2020-08-04] MED LIST changes: +AZITHROMYCIN250 MG PO; +CHERATUSSIN AC118 ML; +CHERATUSSIN AC118 ML PO
== END ==
LOC: RAD 16:01
PROVIDERS: ATTEND Internal Medicine Critical Care Medicine
DX: J44.9 Chronic obstructive pulmonary disease, unspecified (principal)
CPT/HCPCS: 71046

== ENCOUNTER → 2022-08-16 | Outpatient (CLI) | payer MEDICARE | LOC: RAD 11:42 | PROVIDERS: ATTEND Internal Medicine Critical Care Medicine | DX: R09.89 Other specified symptoms and signs involving the circulatory and respiratory systems (principal) | CPT/HCPCS: 71046 ==

== ENCOUNTER → 2024-07-04 | Outpatient (REF) | payer MEDICARE | LOC: RAD 14:17 | PROVIDERS: ATTEND Internal Medicine Critical Care Medicine | DX: R05.9 Cough, unspecified (principal) | CPT/HCPCS: 71046 ==

== ENCOUNTER 2024-12-08 16:05 | Emergency (ER) | payer MEDICARE ==
[~2024-12-08] VITALS: Ht 165.1 cm; Wt 83.9 kg
[2024-12-08 16:22] VITALS: TEMP 98
[2024-12-08 17:58] VITALS: BP 112/75; PULSE 78; RESP 18
[2024-12-08] MEDS: HYDROCODONE/APAP 5MG-325MG TAB PO STA (18:14)
[2024-12-08 18:17] VITALS: PULSE 81; RESP 18; O2SAT 97
[2024-12-08] MEDS ORDERED: ULTRAM 50MG50 MG PO (18:21)
== END 2024-12-08 18:30 | disposition home or self-care (01) ==
LOC: ER 16:51
DX: M25.511 Pain in right shoulder (principal); W01.198A Fall on same level from slipping, tripping and stumbling with subsequent striking against other object, initial encounter; Y93.01 Activity, walking, marching and hiking; Y92.89 Other specified places as the place of occurrence of the external cause; E78.5 Hyperlipidemia, unspecified; G47.00 Insomnia, unspecified
CPT/HCPCS: 99283